=== PATIENT | female | born 1950 | race Caucasian/White ===

== ENCOUNTER 2016-11-17 12:11 | Emergency (ER) | payer MEDICARE, OTHER ==
[2016-11-17 13:00] LABS: BASO % 0.3 % (0.1-1.2); EOS # 0.1 10_X3_uL (0.0-0.4); GRAN % 51.5 % (34.0-71.1); HEMATOCRIT 36.6 % (34-45); HEMOGLOBIN 12.5 g/dL (11.2-15.7); LYMPH # 3.1 10_X3_uL (1.2-3.7); LYMPH % 39.4 % (19.3-51.7); MEAN CORPUSCULAR HEMOGLOBIN 30.5 pg (27.0-33.0); MEAN CORPUSCULAR HGB CONC 34.2 g/dL (32.0-36.0); MEAN CORPUSCULAR VOLUME 89.3 fL (79-95); MEAN PLATELET VOLUME 9.5 fl (7.5-11.5); MONO # 0.6 10_X3_uL (0.2-0.9); MONO % 7.8 % (4.7-12.5); PLATELET COUNT 149 x10_3/uL (182-369); RED CELL DISTRIBUTION WIDTH 13.2 % (11.7-14.4); WHITE BLOOD COUNT 7.8 x10_3/uL (4.0-10.0)
[2016-11-17 13:14] LABS: ALBUMIN 4.5 gm/dL (3.4-5.0); BILIRUBIN,TOTAL 0.47 mg/dL (0.0-1.0); CALCIUM 9.7 mg/dL (8.7-10.7); CREATININE 1.1 mg/dL (0.6-1.3); POTASSIUM 3.6 mmol/L (3.5-5.1); TOTAL PROTEIN 7.2 gm/dL (6.4-8.2)
[2016-11-17 15:29] LABS: URINE BILIRUBIN NEGATIVE (NEGATIVE); URINE BLOOD 1+ (NEGATIVE); URINE GLUCOSE (UA) NORMAL (NORMAL); URINE KETONE NEGATIVE (NEGATIVE); URINE LEUKOCYTE ESTERASE TRACE (NEGATIVE); URINE NITRATE NEGATIVE (NEGATIVE); URINE PROTEIN NEGATIVE (NEGATIVE); UROBILINOGEN NORMAL mg/dL (<1.0)
[2016-11-17 15:39] LABS: URINE BACTERIA TRACE (NONE SEEN); URINE RBC 0-5 /[HPF] (0-2); URINE SQUAMOUS EPITHELIAL CELL 0-10 /[HPF] (NONE SEEN); URINE WBC 0-5 /[HPF] (0-5)
[2016-11-17 15:40] LABS: URINE YEAST 1+ (NONE SEEN)
== END 2016-11-17 15:50 | disposition home or self-care (01) ==
LOC: ER 12:11
PROVIDERS: General Practice
DX: I16.0 Hypertensive urgency (principal); I10 Essential (primary) hypertension; G31.9 Degenerative disease of nervous system, unspecified; R42 Dizziness and giddiness; M25.531 Pain in right wrist; M25.532 Pain in left wrist; I65.23 Occlusion and stenosis of bilateral carotid arteries; M19.90 Unspecified osteoarthritis, unspecified site; E11.9 Type 2 diabetes mellitus without complications; Z85.3 Personal history of malignant neoplasm of breast; Z90.11 Acquired absence of right breast and nipple; Z79.82 Long term (current) use of aspirin; Z79.84 Long term (current) use of oral hypoglycemic drugs; Z79.899 Other long term (current) drug therapy
CPT/HCPCS: 36415; 70450; 73110; 80053; 81001; 85025; 93005; 93880; 99284; 99284-25